=== PATIENT | female | born 1940 | race Caucasian/White ===

== ENCOUNTER → 2017-05-16 | Outpatient (CLI) | payer MEDICARE, OTHER ==
[~2017-05-16] MED LIST: ACE325 PO; CETI-459 PO; CHOLESTEROL; CIP500 PO; CYC10 PO; KET10 PO; LEVO50TA80 PO; LOR5/325 PO; MON10 PO; OND4 PO; SIM10 PO; TRA50 PO
[2017-05-16 09:59] LABS: PLATELET COUNT, AUTOMATED 89 K/uL (150-450)
[2017-05-16 10:10] LABS: INR 1.38
== END ==
LOC: LAB 09:07
PROVIDERS: ATTEND Internal Medicine Gastroenterology
DX: K74.60 Unspecified cirrhosis of liver (principal)
CPT/HCPCS: 36415; 82040; 82247; 82310; 82374; 82435; 82565; 82947; 84075; 84132; 84155; 84295; 84450; 84460; 84520; 85025; 85610

== ENCOUNTER → 2017-10-23 | Outpatient (CLI) | payer MEDICARE, OTHER ==
--- NOTE | 2017-10-23 12:47 | RADIOLOGY IMAGING REPORT ---
[place] [facility] [place]: Raegan Yen : 1940 MR: [id number] V: [id number] EXAM DATE: ORDERING PHYSICIAN: ALVARADO ARMIJO TECHNOLOGIST: Location: [facility] [place] Patient: Raegan Yen : 1940 Visit/Account:[id number] Date of Sevice: 10/23/2017 LIVER HISTORY: Cirrhosis COMPARISON: None. FINDINGS: Liver: Morphologic changes of cirrhosis without visualized hepatoma. Gallbladder: Surgically absent Common duct: Normal, 6 mm diameter. Pancreas: Partially obscured by bowel, visualized aspects unremarkable. Right kidney: Negative. Upper abdominal aorta and IVC: Patent. Ascites: None visualized. IMPRESSION: 1. Morphologic changes of cirrhosis without visualized hepatoma. 2. No ascites visualized on today's exam. Report Dictated By: Israel Garcia MD at 10/23/2017 12:41 PM Report E-Signed By: Israel Garcia MD at 10/23/2017 12:44 PM WSN:[email or web address]
== END ==
LOC: US 00:49
PROVIDERS: ATTEND Internal Medicine Gastroenterology
DX: K76.1 Chronic passive congestion of liver (principal)
CPT/HCPCS: 76705

== ENCOUNTER → 2018-06-18 | Outpatient (CLI) | payer MEDICARE, OTHER ==
--- NOTE | 2018-06-18 10:18 | RADIOLOGY IMAGING REPORT ---
FACILITY: PATIENT NAME: Raegan Yen : 1940 MR: [id number] V: [id number] EXAM DATE: ORDERING PHYSICIAN: ALVARADO ARMIJO TECHNOLOGIST: Location: [facility] Patient: Raegan Yen : 1940 Visit/Account:[id number] Date of Sevice: 06/18/2018 LIVER HISTORY: Cirrhosis COMPARISON: October 23, 2017 FINDINGS: Gallbladder: Surgically absent Liver: There is a slight lobular contour to the liver in keeping with the history of cirrhosis. A fo cm mass is not demonstrated Common duct: Normal, 4.8 mm diameter. Pancreas: Parenchyma appears heterogeneous Right kidney: Right kidney has a slightly lobular contour measures 9.8 cm in length without evidence of hydronephrosis Upper abdominal aorta and IVC: Patent. Ascites: None visualized. IMPRESSION: Is a slightly lobular contour to the liver in keeping with the history of cirrhosis. A focal mass is not demonstrated Postsurgical changes from a cholecystectomy Mildly heterogeneous pancreas Slight lobular contour to the right kidney which otherwise appears unremarkable Report Dictated By: Lluvia Balbuena MD at 06/18/2018 10:10 AM Report E-Signed By: Lluvia Balbuena MD at 06/18/2018 10:13 AM WSN:[email or web address]
== END ==
LOC: US 01:14
PROVIDERS: ATTEND Internal Medicine Gastroenterology
DX: K74.60 Unspecified cirrhosis of liver (principal); Z90.49 Acquired absence of other specified parts of digestive tract
CPT/HCPCS: 76705